=== PATIENT | female | born 1965 | race Caucasian/White ===

== ENCOUNTER → 2019-09-14 | Outpatient (CLI) | payer BC | END | disposition home or self-care (01) | LOC: LAB SHORT 10:15 → LAB 10:15 | DX: R30.9 Painful micturition, unspecified (principal) | CPT/HCPCS: 87077; 87086; 87186 ==

== ENCOUNTER 2022-05-13 19:07 | Inpatient (IN) | payer BC ==
[~2022-05-13] VITALS: Ht 170.2 cm; Wt 89.0 kg
[2022-05-13] MEDS ORDERED: NP THYROID 60 MG PO ×2 (21:42)
[2022-05-13] MEDS ORDERED: Naltrexone HCl50 MG PO ×2 (21:44)
[2022-05-13 22:26] LABS: BASOPHILS ABSOLUTE AUTO 0.04 K/mm3 (0.00-0.23); BASOPHILS PERCENT AUTO 1 % (0-2); EOSINOPHILS ABSOLUTE AUTO 0.24 K/mm3 (0.00-0.68); EOSINOPHILS PERCENT AUTO 3 % (0-6); Hematocrit 18.6 % (33.0-51.0); Hemoglobin 6.2 g/dL (11.5-16.0); IMMATURE GRAN ABSOLUTE AUTO 0.07 K/mm3 (0.00-0.10); IMMATURE GRAN PERCENT AUTO 1 % (0-1); LYMPHOCYTES PERCENT AUTO 14 % (21-46); MONOCYTES ABSOLUTE AUTO 0.61 K/mm3 (0.16-1.47); MONOCYTES PERCENT AUTO 8 % (4-13); Mean Corpuscular HGB 32.1 pg (26.0-34.0); Mean Corpuscular HGB Conc 33.3 g/dL (31.5-36.5); Mean Corpuscular Volume 96 fL (80-100); Mean Platelet Volume 9.9 fL (9.1-12.4); NEUTROPHILS ABSOLUTE AUTO 5.92 K/mm3 (1.96-9.15); NEUTROPHILS PERCENT AUTO 74 % (41-73); Platelet Count 419 K/mm3 (150-400); RDW Coefficient Variation 12.5 % (11.7-14.2); RDW Standard Deviation 43.3 fL (35.1-46.3); Red Blood Cell Count 1.93 M/mm3 (3.80-5.20); White Blood Cell Count 7.98 K/mm3 (4.00-11.30)
[2022-05-13 22:56] LABS: Alanine Aminotransfer (ALT/SGP 18 U/L (12-78); Albumin, Blood 2.9 g/dL (3.4-5.0); Albumin/Globulin Ratio 0.8 (0.8-1.8); Alk Phos 66 U/L (50-136); Anion Gap 8 mmol/L (6-16); Aspartate Aminotrans (AST/SGOT 11 U/L (12-37); Bilirubin, Direct <0.1 mg/dL (0.0-0.3); Bilirubin, Indirect Unable to Calculate mg/dL (0.1-0.7); Bilirubin, Total 0.2 mg/dL (0.1-1.0); Blood Urea Nitrogen 19 mg/dL (8-24); Bun/Creatinine Ratio 24.8 (12.0-20.0); CO2, Blood 28 mmol/L (21-32); Calcium, Blood 8.1 mg/dL (8.5-10.1); Chloride, Blood 99 mmol/L (98-108); Creatinine, Blood 0.77 mg/dL (0.40-1.00); Globulin, Blood 3.5 g/dL (2.2-4.0); Glomerular Filtration Rate 91 (60-); Glucose, Blood 121 mg/dL (70-99); Potassium, Blood 3.4 mmol/L (3.5-5.5); Sodium, Blood 135 mmol/L (136-145); Total Protein, Blood 6.4 g/dL (6.4-8.2)
[2022-05-14 01:43] LABS: International Normalized Ratio 1.01; Prothrombin Time Results 10.6 Sec (9.7-11.5)
[2022-05-14] MEDS ORDERED: TRAM50 ×2 (04:30)
[2022-05-14] MEDS ORDERED: Cipro500 MG PO ×2 (04:31)
[2022-05-14 04:59] LABS: BASOPHILS ABSOLUTE AUTO 0.05 K/mm3 (0.00-0.23); BASOPHILS PERCENT AUTO 1 % (0-2); EOSINOPHILS ABSOLUTE AUTO 0.28 K/mm3 (0.00-0.68); EOSINOPHILS PERCENT AUTO 4 % (0-6); Hematocrit 26.4 % (33.0-51.0); Hemoglobin 8.7 g/dL (11.5-16.0); IMMATURE GRAN ABSOLUTE AUTO 0.07 K/mm3 (0.00-0.10); IMMATURE GRAN PERCENT AUTO 1 % (0-1); LYMPHOCYTES ABSOLUTE AUTO 0.96 K/mm3 (0.84-5.20); LYMPHOCYTES PERCENT AUTO 13 % (21-46); MONOCYTES ABSOLUTE AUTO 0.59 K/mm3 (0.16-1.47); MONOCYTES PERCENT AUTO 8 % (4-13); Mean Corpuscular HGB 30.5 pg (26.0-34.0); Mean Corpuscular Volume 93 fL (80-100); Mean Platelet Volume 9.9 fL (9.1-12.4); NEUTROPHILS ABSOLUTE AUTO 5.44 K/mm3 (1.96-9.15); NEUTROPHILS PERCENT AUTO 74 % (41-73); NRBC ABSOLUTE 0.02 K/mm3 (0.00-0.02); NRBC Auto 0.3 /100 WBC (0.0-0.2); Platelet Count 426 K/mm3 (150-400); RDW Coefficient Variation 14.6 % (11.7-14.2); RDW Standard Deviation 50.1 fL (35.1-46.3); Red Blood Cell Count 2.85 M/mm3 (3.80-5.20); White Blood Cell Count 7.39 K/mm3 (4.00-11.30)
[2022-05-14 05:24] LABS: Albumin, Blood 2.9 g/dL (3.4-5.0); Albumin/Globulin Ratio 0.8 (0.8-1.8); Bilirubin, Total 1.1 mg/dL (0.1-1.0); Bun/Creatinine Ratio 22.6 (12.0-20.0); Calcium, Blood 8.4 mg/dL (8.5-10.1); Creatinine, Blood 0.66 mg/dL (0.40-1.00); Globulin, Blood 3.7 g/dL (2.2-4.0); Potassium, Blood 3.7 mmol/L (3.5-5.5); Total Protein, Blood 6.6 g/dL (6.4-8.2)
--- NOTE | 2022-05-14 06:51 | NUR ---
SHIFT SUMMARY PT IS ALERT AND ORIENTED X4. PT DENIES CHEST PAIN/PRESSURE OR SOB. VITALS HAVE BEEN STABLE AND IS ON ROOM AIR WITH SATS ABOVE 92%. PT REPORTS FEELING PAIN ON RIGHT UPPER ABDOMEN UNDER HER BREAST WHERE SHE HAS A LIPOMA THAT RADIATES TO UPPER MIDLINE; LLQ PAIN; LEFT MID BACK. DR BHATT WAS CALLED FOR PAIN MEDICATION AND ORDERED FENTANYL 25 MCG Q4 PRN FOR PAIN. PHARMACIST CALLED THIS NURSE TO INFORM THAT PT IS TAKING NALTREXONE AND FENTANYL WILL NOT WORK. PT IS ABLE TO AMBULATE WITH SBA TO THAT BATHROOM WITH A STEADY GAIT. CALL LIGHT IS WITHIN REACH.
[2022-05-14 10:50] LABS: Hematocrit 22.9 % (33.0-51.0); Hemoglobin 7.6 g/dL (11.5-16.0)
--- NOTE | 2022-05-14 13:24 | NUR ---
PT HAS A 20 G IV IN R AC THAT FLOWS WELL TO GRAVITY. SITE IS CDI, NO SIGNS OF INFILTRATION, NO REDNESS, NO COOL TO THE ARM, NO SWELLING.
[2022-05-14 14:10] LABS: Influenza A, PCR NEGATIVE (NEGATIVE); Influenza B, PCR NEGATIVE (NEGATIVE); Resp Syncytial Virus, PCR NEGATIVE (NEGATIVE); SARS-Cov-2 (COVID-19) PCR, MMC NEGATIVE (NEGATIVE)
--- NOTE | 2022-05-14 14:10 | NUR ---
1313 PT TAKEN FOR ENDOSCOPY- PT JUST VOIDED. AMBULATED TO STRETCHER STEADY ON FEET. IV X2 LAC/RAC #20.
--- NOTE | 2022-05-14 14:39 | NUR ---
1415- PT RETURNED FROM ENDOSCOPY- A/O AWAKE, AMBULATED BACK TO BED. CALLED DR RAMAN AND RELAYED FINDINGS OF MASS IN STOMACH, NOT CURRENTLY BLEEDINC. ORDERS RECEIVED FROM DR KAUR TO START CLEAR LIQUID DIET, DC PROTONIX GTT AND START ORAL DOSING.
--- NOTE | 2022-05-14 15:14 | NUR ---
05/14/22 1514 Marissa Hammond HISTORY, CHART, MEDICATIONS AND ALLERGIES REVIEWED BEFORE START OF PROCEDURE. PATIENT CONFIRMS NPO STATUS AND AGREES WITH SCHEDULED PROCEDURE. 3-LEAD EKG REVIEWED WITH PHYSICIAN PRIOR TO START OF PROCEDURE. MONITOR INTACT WITH CONTINUOUS PULSE OXIMETRY,CAPNOGRAPHY, 3-LEAD EKG, INTERMITTENT BP. SUPPLEMENTAL O2 TO BE TITRATED THROUGHOUT PROCEDURE TO MAINTAIN O2 SATURATION ABOVE 90%. PATIENT DETERMINED TO BE ASA APPROPRIATE FOR PROPOFOL SEDATION PRIOR TO START OF PROCEDURE BY
[2022-05-14 16:15] LABS: Hematocrit 22.8 % (33.0-51.0); Hemoglobin 7.4 g/dL (11.5-16.0)
--- NOTE | 2022-05-14 17:44 | NUR ---
SUMMARY- PT A/O X4. SBA TO BATHROOM. ANEMIA UPON ADMIT WITH IMPROVEMENT IN H/H AFTER 2UNITS PRBC'S IN ED 05/13. HAD UPPER ENDO TODAY WITH MIESHA 1330- FOUND STOMACH MASS AND SENT BX. PT HAVING LUQ PAIN, CONTROLLED WITH IV DILAUDID. NO NAUSEA, HAS TOLERATED CLEAR DIET SINCE PROCEDURE. WANTING GENERAL MEAL BUT VIEWING DR WHITESIDE'S NOTE, NOT WANTING TO ADAT. VSS POST PROCEDURE. IN THE ROOM, IS A WONDERFUL SUPPORT, STAYING IN RECLINER TONIGHT. WILL REPORT TO NOC [place].
[2022-05-14 22:20] LABS: Hematocrit 23.2 % (33.0-51.0); Hemoglobin 7.8 g/dL (11.5-16.0)
[2022-05-15 03:43] LABS: BASOPHILS ABSOLUTE AUTO 0.05 K/mm3 (0.00-0.23); BASOPHILS PERCENT AUTO 1 % (0-2); EOSINOPHILS ABSOLUTE AUTO 0.25 K/mm3 (0.00-0.68); EOSINOPHILS PERCENT AUTO 4 % (0-6); Hematocrit 23.2 % (33.0-51.0); Hemoglobin 7.6 g/dL (11.5-16.0); IMMATURE GRAN ABSOLUTE AUTO 0.08 K/mm3 (0.00-0.10); IMMATURE GRAN PERCENT AUTO 1 % (0-1); LYMPHOCYTES ABSOLUTE AUTO 0.75 K/mm3 (0.84-5.20); LYMPHOCYTES PERCENT AUTO 11 % (21-46); MONOCYTES ABSOLUTE AUTO 0.48 K/mm3 (0.16-1.47); MONOCYTES PERCENT AUTO 7 % (4-13); Mean Corpuscular HGB 30.3 pg (26.0-34.0); Mean Corpuscular HGB Conc 32.8 g/dL (31.5-36.5); Mean Corpuscular Volume 92 fL (80-100); NEUTROPHILS ABSOLUTE AUTO 5.25 K/mm3 (1.96-9.15); NEUTROPHILS PERCENT AUTO 77 % (41-73); Platelet Count 400 K/mm3 (150-400); RDW Coefficient Variation 15.3 % (11.7-14.2); RDW Standard Deviation 51.4 fL (35.1-46.3); Red Blood Cell Count 2.51 M/mm3 (3.80-5.20); White Blood Cell Count 6.86 K/mm3 (4.00-11.30)
[2022-05-15 04:11] LABS: Albumin, Blood 2.5 g/dL (3.4-5.0); Bilirubin, Total 0.3 mg/dL (0.1-1.0); Bun/Creatinine Ratio 12.4 (12.0-20.0); Calcium, Blood 8.2 mg/dL (8.5-10.1); Creatinine, Blood 0.64 mg/dL (0.40-1.00); Globulin, Blood 2.6 g/dL (2.2-4.0); Potassium, Blood 4.3 mmol/L (3.5-5.5); Total Protein, Blood 5.1 g/dL (6.4-8.2)
--- NOTE | 2022-05-15 05:07 | NUR ---
SHIFT SUMMARY PT IS ALERT AND ORIENTED X4. THERE HAVE BEEN NO ACUTE CHANGES T/O THE NIGHT. PT DENIES CHEST PAIN/PRESSURE OR SOB. PT DENIES PAIN. VITALS ARE STABLE AND IS ON ROOM AIR WITH SATS ABOVE 92%. PT HAS BEEN ABLE TO GET UP TO BATHROOM SEVERAL TIMES T/O THE NIGHT BUT REPORTS NO BM. S/O AT THE BEDSIDE. CALL LIGHT IS WITHIN REACH.
--- NOTE | 2022-05-15 09:15 | NUR ---
AM NOTE: PATIENT ALERT AND ORIENTED X4. NEURO WNL. ON ROOM AIR, LUNGS SOUNDING CLEAR. TELE SHOWING SINUS RHYTHM WITH HR 70-80'S. DENIES CHEST PAIN/PRESSURE. BP STABLE. DENIES ABDOMINAL PAIN/NAUSEA. DENIES CONSTIPATION/DIARRHEA. NO BM THIS AM. ON CLEAR LIQUID DIET AND TOLERATING WELL, ALTHOUGH PATIENT WOULD LIKE TO BE ADVANCED. IRON INFUSION THIS AM. AT BEDSIDE. CALL LIGHT IN REACH. WILL CONTINUE TO MONITOR.
[2022-05-15] MEDS ORDERED: OXYC5 PO ×2 (14:41)
[2022-05-15] MEDS ORDERED: Colace100 MG PO ×2 (14:42)
[2022-05-15] MEDS ORDERED: FERSU300 PO ×2 (14:42)
[2022-05-15] MEDS ORDERED: PANT40 PO ×2 (14:43)
--- NOTE | 2022-05-15 15:12 | NUR ---
DISCHARGE: NO ACUTE CHANGES, PATIENT DENIED PAIN THROUGHOUT SHIFT. DISCHARGE INSTRUCTIONS REVIEWED WITH PATIENT AND . REVIEWED FOLLOW UP APPOINTMENTS, NEW MEDICATIONS, AND OVERALL EDUCATION. PATIENT AND DENY QUESTIONS. PRESCRIPTIONS FAXED TO [facility]. PATIENT SENT HOME WITH WRITTEN SCRIPT AND COPY IN CHART. IV'S TAKEN OUT WNL. PATIENT LEFT UNIT VIA WHEELCHAIR WITH ALL PERSONAL BELONGINGS.
== END 2022-05-15 15:10 | disposition home or self-care (01) | DRG 378 ==
LOC: ER 19:07 → PCU 05-14 01:50
PROVIDERS: Family Medicine; Internal Medicine; Student in an Organized Health Care Education/Training Program; ADMIT Family Medicine
PROC: 30233N1 Transfusion of Nonautologous Red Blood Cells into Peripheral Vein, Percutaneous Approach (ICD-10-PCS; principal; 2022-05-13)
PROC: 0DB98ZX Excision of Duodenum, Via Natural or Artificial Opening Endoscopic, Diagnostic (ICD-10-PCS; 2022-05-14)
PROC: 0DB78ZX Excision of Stomach, Pylorus, Via Natural or Artificial Opening Endoscopic, Diagnostic (ICD-10-PCS; 2022-05-14)
DX: K92.1 Melena (principal); C16.9 Malignant neoplasm of stomach, unspecified; C25.9 Malignant neoplasm of pancreas, unspecified; D62 Acute posthemorrhagic anemia; C78.7 Secondary malignant neoplasm of liver and intrahepatic bile duct; C77.2 Secondary and unspecified malignant neoplasm of intra-abdominal lymph nodes; K25.9 Gastric ulcer, unspecified as acute or chronic, without hemorrhage or perforation; E87.6 Hypokalemia; E06.3 Autoimmune thyroiditis; K86.9 Disease of pancreas, unspecified; F17.210 Nicotine dependence, cigarettes, uncomplicated; Z20.822 Contact with and (suspected) exposure to COVID-19; F10.10 Alcohol abuse, uncomplicated; Z98.51 Tubal ligation status; Z79.2 Long term (current) use of antibiotics; Z88.8 Allergy status to other drugs, medicaments and biological substances; Z87.442 Personal history of urinary calculi; Z79.899 Other long term (current) drug therapy; Z79.891 Long term (current) use of opiate analgesic; Z87.820 Personal history of traumatic brain injury; Z98.890 Other specified postprocedural states
CPT/HCPCS: 0241U; 36415; 36430; 70470; 71260; 80048; 80053; 80076; 82272; 82607; 82746; 83690; 85014; 85018; 85025; 85610; 85730; 86850; 86900; 86901; 86923; 88305; 94762; 96374; 99285-25; A9270; C9113; J1170; J2704; J2916; J3480; J7030; J7120; P9016; Q9967

== ENCOUNTER 2022-05-14 01:48 | Day surgery (SDC) | payer BC ==
[~2022-05-14 01:48] MED LIST: NP THYROID 60 MG PO; Naltrexone HCl50 MG PO
[2022-05-14] MEDS ORDERED: TRAM50 (04:30)
[2022-05-14] MEDS ORDERED: Cipro500 MG PO (04:31)
[2022-05-15] MEDS ORDERED: OXYC5 PO (14:41)
[2022-05-15] MEDS ORDERED: FERSU300 PO (14:42)
[2022-05-15] MEDS ORDERED: Colace100 MG PO (14:42)
[2022-05-15] MEDS ORDERED: PANT40 PO (14:43)
== END 2022-05-14 23:12 | disposition home or self-care (01) ==
LOC: ATC 01:48
DX: C80.1 Malignant (primary) neoplasm, unspecified (principal); C78.7 Secondary malignant neoplasm of liver and intrahepatic bile duct; D63.0 Anemia in neoplastic disease; K86.89 Other specified diseases of pancreas; Z98.51 Tubal ligation status; Z88.8 Allergy status to other drugs, medicaments and biological substances; Z87.891 Personal history of nicotine dependence
CPT/HCPCS: 86850; 86900; 86901; 86920

== ENCOUNTER 2022-05-18 01:36 | Day surgery (SDC) | payer BC ==
[~2022-05-18 01:36] MED LIST changes: +Cipro500 MG PO; +Colace100 MG PO; +FERSU300 PO; +OXYC5 PO; +PANT40 PO; +TRAM50
[2022-05-18] MEDS ORDERED: COLACE100 MG PO (08:20)
[2022-05-18] MEDS ORDERED: Ferrous Glucon324 M1 PO (08:21)
[2022-05-18] MEDS ORDERED: PANTOPRAZOLE SO40 M2 PO (08:22)
== END 2022-05-18 10:18 | disposition home or self-care (01) ==
LOC: ATC 01:36
DX: K86.89 Other specified diseases of pancreas (principal); C80.1 Malignant (primary) neoplasm, unspecified; D50.9 Iron deficiency anemia, unspecified; C78.7 Secondary malignant neoplasm of liver and intrahepatic bile duct; Z87.891 Personal history of nicotine dependence
CPT/HCPCS: 36430; 86850; 86900; 86901; 86923; J7040; P9016

== ENCOUNTER 2022-05-28 01:20 | Day surgery (SDC) | payer BC ==
[~2022-05-28 01:20] MED LIST changes: +COLACE100 MG PO; +Ferrous Glucon324 M1 PO; +ONDA4SO; +PANTOPRAZOLE SO40 M2 PO; +TRAM50 PO
== END 2022-05-28 11:47 | disposition home or self-care (01) ==
LOC: ATC 01:20
DX: C25.8 Malignant neoplasm of overlapping sites of pancreas (principal); D80.9 Immunodeficiency with predominantly antibody defects, unspecified; D63.0 Anemia in neoplastic disease; Z87.891 Personal history of nicotine dependence; Z88.8 Allergy status to other drugs, medicaments and biological substances; C78.7 Secondary malignant neoplasm of liver and intrahepatic bile duct
CPT/HCPCS: 36430; 86850; 86900; 86901; 86923; J7040; P9016

== ENCOUNTER 2022-06-01 09:56 | Day surgery (SDC) | payer BC ==
[~2022-06-01] VITALS: Ht 170.2 cm; Wt 84.4 kg
--- NOTE | 2022-06-01 12:41 | NUR ---
Discharge instructions reviewed with patient. Patient verbalizes understanding. Copy given to patient to take home.
--- NOTE | 2022-06-01 12:55 | NUR ---
Discharged via wheelchair to private car for ride home.
== END 2022-06-01 12:57 | disposition home or self-care (01) ==
LOC: ORSCMMR 09:56 → ORD 11:00 → ORSCMMR 11:00
PROVIDERS: Surgery
PROC: 05HM33Z Insertion of Infusion Device into Right Internal Jugular Vein, Percutaneous Approach (ICD-10-PCS; principal; 2022-06-01 11:00)
PROC: B543ZZA Ultrasonography of Right Jugular Veins, Guidance (ICD-10-PCS; principal; 2022-06-01 11:00)
DX: C25.8 Malignant neoplasm of overlapping sites of pancreas (principal); K21.9 Gastro-esophageal reflux disease without esophagitis; E03.9 Hypothyroidism, unspecified; Z79.899 Other long term (current) drug therapy; Z87.891 Personal history of nicotine dependence
CPT/HCPCS: 77001; C1788; J0690; J1100; J1642; J2250; J2405; J2704; J3010; J7120

== ENCOUNTER → 2022-06-22 | Outpatient (CLI) | payer BC ==
[~2022-06-22] MED LIST changes: +DOXYCYCLINE HY100 M1 PO
== END ==
LOC: LAB SHORT 10:45 → LAB 10:45
DX: L08.0 Pyoderma (principal)
CPT/HCPCS: 87070; 87205

== ENCOUNTER 2022-06-25 03:01 | Day surgery (SDC) | payer BC ==
[2022-06-24 09:43] LABS: Hemoglobin 6.3 g/dL (11.5-16.0); Mean Corpuscular HGB 31.2 pg (26.0-34.0); Mean Corpuscular HGB Conc 31.5 g/dL (31.5-36.5); Mean Corpuscular Volume 99 fL (80-100); Mean Platelet Volume 10.5 fL (9.1-12.4); NRBC ABSOLUTE 0.24 K/mm3 (0.00-0.02); NRBC Auto 5.8 /100 WBC (0.0-0.2); Platelet Count 184 K/mm3 (150-400); RDW Standard Deviation 57.7 fL (35.1-46.3); Red Blood Cell Count 2.02 M/mm3 (3.80-5.20); White Blood Cell Count 4.12 K/mm3 (4.00-11.30)
[2022-06-24 09:54] LABS: Albumin/Globulin Ratio 0.9 (0.8-1.8); Bilirubin, Total 0.2 mg/dL (0.1-1.0); Bun/Creatinine Ratio 22.3 (12.0-20.0); Calcium, Blood 8.5 mg/dL (8.5-10.1); Creatinine, Blood 0.67 mg/dL (0.40-1.00); Globulin, Blood 3.3 g/dL (2.2-4.0); Potassium, Blood 3.8 mmol/L (3.5-5.5); Total Protein, Blood 6.3 g/dL (6.4-8.2)
[2022-06-24 10:11] LABS: BAND PERCENT MAN 6 % (0-8); BASOPHILS PERCENT MAN 0 % (0-2); EOSINOPHILS ABSOLUTE MAN 0.28 K/mm3 (0.00-0.68); EOSINOPHILS PERCENT MAN 7 % (0-6); LYMPHOCYTES ABSOLUTE MAN 0.86 K/mm3 (0.84-5.20); LYMPHOCYTES PERCENT MAN 21 % (21-46); METAMYELOCYTE ABSOLUTE MAN 0.12 K/mm3 (0.00-0.00); METAMYELOCYTE PERCENT MAN 3 % (0-0); MONOCYTES ABSOLUTE MAN 0.32 K/mm3 (0.16-1.47); MONOCYTES PERCENT MAN 8 % (4-13); SEG NEUTROPHILS PERCENT MAN 45 % (41-73); TOTAL CELLS COUNTED 100
[2022-06-24 10:12] LABS: MYELOCYTE ABSOLUTE MAN 0.41 K/mm3 (0.00-0.00); MYELOCYTE PERCENT MAN 10 % (0-0)
[2022-06-24 12:38] LABS: IMMATURE RETIC FRACTION 62.1 % (2.3-16.0); RETIC HGB EQUIVALENT 31.5 pg (28.20-36.60); RETICULOCYTE ABSOLUTE 0.067 M/mm3 (0.0200-0.1100); RETICULOCYTE COUNT PERCENT 3.19 % (0.50-2.50)
[~2022-06-25 03:01] MED LIST changes: -DOXYCYCLINE HY100 M1 PO
[2022-06-25] MEDS ORDERED: DOXYCYCLINE HY100 M1 PO (15:22)
== END 2022-06-25 16:00 | disposition home or self-care (01) ==
LOC: ATC 03:01 → EDSTATUS 14:00 → ATC 16:00
PROVIDERS: Internal Medicine Hematology & Oncology
DX: C25.8 Malignant neoplasm of overlapping sites of pancreas (principal); C78.7 Secondary malignant neoplasm of liver and intrahepatic bile duct; D64.9 Anemia, unspecified; Z87.891 Personal history of nicotine dependence
CPT/HCPCS: 36415; 36430; 80053; 82668; 85025; 85045; 86301; 86850; 86900; 86901; 86923; J7040; P9016

== ENCOUNTER 2022-07-14 06:57 | Day surgery (SDC) | payer BC ==
[~2022-07-14] VITALS: Ht 170.2 cm; Wt 86.0 kg
[~2022-07-14 06:57] MED LIST changes: +DOXYCYCLINE HY100 M1 PO; +ONDA4 PO; +THYR60 PO
--- NOTE | 2022-07-14 11:10 | NUR ---
PATIENT VISITING WITH , NO COMPLAINTS OF DISCOMFORT, RIGHT GROIN SITE SOFT AND NONTENDER. NO HEMATOMA, NO BLEEDING
--- NOTE | 2022-07-14 12:55 | NUR ---
APTIENT AND VERBALIZED UNDERSTANDING OF DISCHARGE INSTRUCTIONS AND PRECAUTIONS. PATIENT AMBULATED TO REST ROOM. RIGHT GROIN SITE REAMINS SOFT AND NONTENDER. NO HEMATOMA, NO BLEEDING DRESSING INTACT. IV SITE DCED WITH CATHETER INTACT. NO FURTHER QUESTIONS. PATIENT TAKEN VIA WHEEL CHAIR WAITING CAR. DRIVING
== END 2022-07-14 16:08 | disposition home or self-care (01) ==
LOC: MHTC 06:57
DX: C25.9 Malignant neoplasm of pancreas, unspecified (principal); D50.0 Iron deficiency anemia secondary to blood loss (chronic); K25.4 Chronic or unspecified gastric ulcer with hemorrhage; C78.7 Secondary malignant neoplasm of liver and intrahepatic bile duct; C78.89 Secondary malignant neoplasm of other digestive organs; E06.3 Autoimmune thyroiditis; Z87.891 Personal history of nicotine dependence; Z88.8 Allergy status to other drugs, medicaments and biological substances
CPT/HCPCS: 37243; 75726; 75774; 76937; 99152; 99153; C1760; C1769; C1887; C1894; J1644; J2250; J3010; J7030; J7040; Q9967

== ENCOUNTER 2022-08-14 01:14 | Day surgery (SDC) | payer BC | END 2022-08-14 09:24 | disposition home or self-care (01) | LOC: ATC 01:14 | DX: C25.8 Malignant neoplasm of overlapping sites of pancreas (principal); C78.7 Secondary malignant neoplasm of liver and intrahepatic bile duct; E06.3 Autoimmune thyroiditis; Z88.8 Allergy status to other drugs, medicaments and biological substances | CPT/HCPCS: Q5110 ==

== ENCOUNTER 2022-08-15 01:07 | Day surgery (SDC) | payer BC | END 2022-08-15 09:08 | disposition home or self-care (01) | LOC: ATC 01:07 | DX: C25.8 Malignant neoplasm of overlapping sites of pancreas (principal); D50.9 Iron deficiency anemia, unspecified; C78.7 Secondary malignant neoplasm of liver and intrahepatic bile duct; D70.1 Agranulocytosis secondary to cancer chemotherapy | CPT/HCPCS: Q5110 ==